=== PATIENT | female | born 1950 ===

== ENCOUNTER → 2018-02-23 | Outpatient (CLI) | payer BC ==
[2018-02-23 18:41] LABS: BLOOD UREA NITROGEN 13 mg/dl (7-18); CALCIUM 9.3 mg/dl (8.5-10.1); CARBON DIOXIDE 28 mmol/L (21-32); GLUCOSE 191 mg/dl (70-99); POTASSIUM 4.2 mmol/L (3.5-5.1); SODIUM 138 mmol/L (136-145)
[2018-02-23 18:44] LABS: ALT/SGPT 23 U/L (12-78); LDL CHOLESTEROL (DIRECT) 82 mg/dl
[2018-02-24 06:19] LABS: HEMOGLOBIN A1C 10.2 % (4.5-5.6)
== END | disposition home or self-care (01) ==
LOC: C.LABMFLN 16:21
PROVIDERS: ATTEND Family Medicine
DX: E78.00 Pure hypercholesterolemia, unspecified (principal); E11.9 Type 2 diabetes mellitus without complications; I10 Essential (primary) hypertension; F32.9 Major depressive disorder, single episode, unspecified; E55.9 Vitamin D deficiency, unspecified